=== PATIENT | male | born 1980 | race Caucasian/White ===

== ENCOUNTER 2016-03-30 15:50 | Emergency (ER) | payer OTHER ==
[2016-03-30 15:59] VITALS: RESP 16
[2016-03-30] MEDS ORDERED: OXYCODONE/APAP 5/325 TAB PO ONE ×2 (16:25→17:03)
--- NOTE | 2016-03-30 16:25 | EDPHY ---
H & P Stated Complaint: R SHOULDER DISLOCATION THAT HE WAS ABLE TO GET BACK/FEELING TINGLY/PAIN HPI/ROS: CHIEF COMPLAINT: Right shoulder pain HISTORY OF PRESENT ILLNESS: The patient is a 35 y/o male arriving with his family complaining of right shoulder pain secondary to a dislocation after falling at work. He says he slipped on the floor while coming around a corner and landed with his arm perpendicular to his body onto a table. He felt the shoulder dislocated and relocated it by lifting his arm above his head. He had numerous previous dislocations to his left shoulder and ultimately had rotator cuff surgery on that shoulder. He has had no previous dislocations or injuries to his right shoulder. His pain is manageable while still but aggravated significantly by movement. He has associated mild tingling through his dorsal forearm. He denies other injuries from the fall, dyspnea, head pain, neck pain, or back pain. He is right-handed. REVIEW OF SYSTEMS: A ten point review of systems was performed and is negative with the exception of the items mentioned in the HPI. Source: Patient Exam Limitations: No limitations - Personal History Current Tetanus/Diphtheria Vaccine: Unsure - Medical/Surgical History PMH: PMH includes: Rotator cuff surgery to left shoulder after multiple dislocations Family has relationship with Dr. Barragan. Hx Asthma: No Hx Chronic Respiratory Disease: No Hx Diabetes: No Hx Cardiac Disease: No Hx Renal Disease: No Hx Cirrhosis: No Hx Alcoholism: Yes Hx HIV/AIDS: No Hx Splenectomy or Spleen Trauma: No Other PMH: PSH: L shoulder; ruptured L achillies tendon. PMH: concussion - Social History Smoking Status: Current some day smoker Additional Social History: Family at bedside. 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 - Physical Exam Exam: General Appearance: Alert. Vital signs reviewed. Eyes: Pupils equal and round, no conjunctival injection, no discharge. Anicteric. ENT, Mouth: Mucous membranes are moist, no oropharyngeal erythema or edema. Neck: Nontender to palpation over the cervical spine. No pain with AROM of his head/neck. Respiratory: Lungs are clear to auscultation; no wheezes, rales, or rhonchi. Cardiovascular: Regular rate and rhythm; no murmur, rub, or gallop. Gastrointestinal: Abdomen is soft and nontender, no masses or organomegaly, bowel sounds normal. Skin: Warm and dry, no rashes on exposed skin, normal color. Back: Nontender to palpation over the thoracolumbar spine. Extremities: Right shoulder tenderness anteriorly, no deformity, ROM limited by pain. Neurological: Alert and oriented. Moving all four extremities easily and equally. Mildly altered sensation to light touch of entire right arm. Slagger right 5/5. Right wrist flex/ext/pronate/supinate intact. Pulses: 2+ right radial pulse. Psychiatric: Normal affect. Constitutional: Initial Vital Signs Temperature (C) 36.4 C 03/30/16 15:57 Heart Rate 66 03/30/16 15:57 Respiratory Rate 16 03/30/16 15:57 Blood Pressure 105/92 H 03/30/16 15:57 O2 Sat (%) 96 03/30/16 15:57 O2 Delivery Mode Room Air Allergies/Adverse Reactions: No Known Allergies Allergy (Verified 03/30/16 15:56) Home Medications: Medication Instructions Recorded Hydrocodone/APAP 5/325 [[place] 1 - 2 tab PO Q4 PRN #14 tab 03/30/16 5/325 (RX)] oxyCODONE/APAP 5/325 [Percocet 1 - 2 tab PO Q4H PRN #20 tab 03/30/16 5/325 (RX)] Medical Decision Making - Diagnostics Imaging: Study: Right shoulder x-ray Indication: Pain, trauma Results: shoulder x-ray was obtained. The results of the study are no fracture or dislocation. Radiologist report pending. I viewed the images myself on the PACS system. ED Course/Re-evaluation: This is a healthy 35 y/o male presenting with right shoulder pain secondary to falling and dislocating it at work. He reduced it himself before coming in to the ED. In addition to pain, je complains of some decreased sensation to light touch primarily over his right forearm. 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 ROM of shoulder limited by pain. He denies other injuries or complaints. X-rays do not show fracture or persistent dislocation. He will be discharged in a sling with general dislocation care instructions and script for Percocet. He's been referred to Dr. Barragan's office for follow up as well as his HR department for workman's comp. I spoke with Dr. Greco's PA and am assured that he can be seen in the office by a practitioner on Saturday, two days from now. Return precautions given. He is comfortable with this plan. Right arm sensation improved after sling placed. Danger signs reviewed. Differential Diagnosis: DDx includes but is not limited to dislocation, fracture, sprain, AC separation , contusion, neurovascular injury. - Data Points Medications Given: Discontinued Medications Oxycodone/Acetaminophen (Percocet 5/325) 1 - 2 tab PO EDNOW ONE Stop: 03/30/16 16:26 Last Admin: 03/30/16 16:29 Dose: 1 tab Oxycodone/Acetaminophen (Percocet 5/325) 1 tab PO EDNOW ONE Stop: 03/30/16 17:04 Last Admin: 03/30/16 17:08 Dose: 1 tab Departure - Departure Disposition: Home, Routine, Self-Care Clinical Impression: Dislocation of shoulder, right, closed Qualifiers: Qualifier Code: (S43.004A) Unspecified dislocation of right shoulder joint, initial encounter Condition: Good Instructions: Shoulder Dislocation (ED) Additional Instructions: 1. Rest. Apply ice to sore areas. Take 600mg ibuprofen every 8 hours for pain and inflammation for the next 5-7 days. 2. Use [place] as prescribed when needed for pain not controlled by ibuprofen. 3. Keep arm in sling until follow up. 4. Follow up with orthopedist next week. Call the office and Dr. Greco can see you on Saturday. Dr. Barragan is out of the office all week. Let the office staff know that the emergency department has spoken with Dr. Greco's PA and Dr. Greco will see him on Sunday 04/02. 5. Return to the ED for severe pain, weakness or numbness in your hand, significant swelling, or other worsening of condition. 6. Follow up with appropriate services as directed by your HR department for workman's comp. Referrals: Mark Greco MD [Medical Doctor] - As per Instructions Franco Barragan MD [Medical Doctor] - As per Instructions Prescriptions: Hydrocodone/APAP 5/325 [[place] 5/325 (RX)] 1 - 2 tab PO Q4 PRN #14 tab PRN Reason: pain oxyCODONE/APAP 5/325 [Percocet 5/325 (RX)] 1 - 2 tab PO Q4H PRN #20 tab PRN Reason: Pain, Severe Report Scribed for: Luz Marina Rausch Report Scribed by: Gema Ly Date of Report: 03/30/16 Time of Report: 16:33 Physician Review and Approval Statement: 03/30/16 16:25 Portions of this note were transcribed by the medical billing and coding instructor. I, Dr. Luz Marina Rausch, personally performed the history, physical exam, and medical decision- making; and confirmed the accuracy of the information in the transcribed note.
[2016-03-30] MEDS ORDERED: OXYCODONE/APAP 5/325 TAB ONE (17:04)
[2016-03-30 17:22] VITALS: BP 109/86; PULSE 68; TEMP 97.3; O2SAT 97
--- NOTE | 2016-03-30 17:40 | DX ---
Right shoulder - 3 views dated March 30, 2016 Indication: Right shoulder pain. Fell on ice. Comparison: Two-view chest dated November 08, 2014 Findings: The bones are anatomically aligned. No shoulder dislocation. The acromioclavicular and priscilla coclavicular intervals are normal. Minimal deformity distal right clavicle is old. Impression: 1. Normal alignment. 2. No acute fracture.
== END 2016-03-30 18:06 | disposition home or self-care (01) ==
DX: S43.004A Unspecified dislocation of right shoulder joint, initial encounter (principal); F17.200 Nicotine dependence, unspecified, uncomplicated; W01.0XXA Fall on same level from slipping, tripping and stumbling without subsequent striking against object, initial encounter; Y92.69 Other specified industrial and construction area as the place of occurrence of the external cause; Y99.0 Civilian activity done for income or pay; Y93.89 Activity, other specified